=== PATIENT | male | born 1980 | race Hispanic/Latino ===

== ENCOUNTER 2018-09-19 07:52 | Inpatient (IN) | payer OTHER ==
[~2018-09-19] VITALS: Ht 186.7 cm; Wt 92.6 kg
[2018-09-19] VITALS (18 sets, daily range): BP systolic 111–134; BP diastolic 54–77
--- NOTE | 2018-09-19 09:40 | NUR ---
[place] [facility] [place] IN NO DISTRESS. NO CHEST PAIN OR SOB. DR BROWN SENT MESSAGE THAT PT HAS ARRIVED TO ROOM 219
[2018-09-19] MEDS ORDERED: ACETAMINOPHEN 325 MG TAB PO PRN (10:00)
[2018-09-19] MEDS ORDERED: ONDANSETRON HCL 4 MG/2 ML VIAL IVP PRN (10:00)
--- NOTE | 2018-09-19 10:15 | NUR ---
DR BROWN HERE AT BEDSIDE. DR ELLIOTT PAGEReyna
--- NOTE | 2018-09-19 13:10 | NUR ---
PT TAKEN TO SEWER
[2018-09-19] MEDS ORDERED: IOHEXOL 350 MG/ML 100ML INFUS..BTL IV ONE (13:14)
[2018-09-19] MEDS ORDERED: IOHEXOL-350 50ML VIAL IV ONE (13:14)
[2018-09-19] MEDS ORDERED: HEPARIN SODIUM 1000UNIT/ML 10ML VIAL ONE (13:14)
[2018-09-19] MEDS ORDERED: LIDOCAINE HCL 2% 20ML ONE (13:15)
[2018-09-19] MEDS ORDERED: ETOMIDATE 2 MG/ML 10 ML VIAL IVP ONE (13:49)
[2018-09-19] MEDS ORDERED: ROCURONIUM BROMIDE 10MG/1ML 5ML VL IV ONE (13:49)
[2018-09-19] MEDS ORDERED: CALCIUM CHLORIDE 100 MG/ML 10 ML SYG IVP ONE (13:51)
[2018-09-19] MEDS ORDERED: HEPARIN SODIUM 1000UNIT/ML 10ML VIAL IV ONE (13:51)
--- NOTE | 2018-09-19 14:34 | NUR ---
BACK FROM PHYSICAL THERAPY DIRECTOR. D-STAT DRESSING TO RT GROIN INTACT. NO HEMATOMA OR BLEEDING NOTED. DR JOY WAS CONTACTED BY PHYSICAL THERAPY DIRECTOR STAFF AND DR ELLIOTT. STABLE
[2018-09-19] MEDS: NIFEDIPINE 10 MG CAP PO SCH ×2 (15:06→21:19)
[2018-09-19] MEDS: NITROGLYCERIN 1GM/1 INCH PACKET TD SCH ×2 (15:07→23:11)
--- NOTE | 2018-09-19 17:19 | NUR ---
NO ACUTE DISTRESS NOTED-AWAITING DR JOY ARRIVAL,HE HAS BEEN NOTIFIED
[2018-09-19] MEDS: ATORVASTATIN CALCIUM 40 MG TABLET PO SCH (21:19)
[2018-09-19] MEDS: FAMOTIDINE 20MG TAB 20 MG TAB PO SCH (21:19)
[2018-09-20] MEDS ORDERED: CEFAZOLIN SODIUM 1 GM VIAL IVP PRN (01:30)
[2018-09-20 02:10] LABS: HEMATOCRIT 42.7 % (42-54); MEAN CORPUSCULAR HEMOGLOBIN 31.8 pg (27.0-33.0); MEAN CORPUSCULAR HGB CONC 35.4 g/dL (32.0-36.0); MEAN CORPUSCULAR VOLUME 89.8 fL (79-99); PLATELET COUNT (AUTO) 205 K/uL (130-400); RED BLOOD CELL COUNT(AUTO) 4.75 MIL/uL (4.50-6.20); RED CELL DISTRIBUTION WIDTH 14.4 % (11.0-15.5); WHITE BLOOD COUNT (AUTO) 6.7 K/uL (4.8-10.8)
[2018-09-20 02:22] LABS: INR 0.94 (0.85-1.15); PARTIAL THROMBOPLASTIN TIME 28.7 SEC (26.3-35.5); PROTHROMBIN TIME 9.9 SEC (9.6-11.6)
[2018-09-20 02:35] LABS: POTASSIUM 3.7 mmol/L (3.5-5.1)
[2018-09-20 03:00] VITALS: BP 106/46
[2018-09-20 03:09] LABS: HEMOGLOBIN A1C 5.4 % (4.0-6.0)
--- NOTE | 2018-09-20 05:45 | NUR ---
CONSENT OBTAINED FOR CABG AND PFT 'S AND PRE OP TEACHING COMLETED WITH BOOKLET GIVEN ' GOING FOR OPEN HEART SURGERY". QUESTIONS ANSWERED WITH PATIENT VERBALIZING UNDERSTANDING.
[2018-09-20] MEDS: NITROGLYCERIN 1GM/1 INCH PACKET TD SCH ×3 (06:32→22:32)
[2018-09-20 07:55] VITALS: BP 109/41
[2018-09-20] MEDS: NIFEDIPINE 10 MG CAP PO SCH ×3 (09:00→21:00)
[2018-09-20] MEDS: FAMOTIDINE 20MG TAB 20 MG TAB PO SCH ×2 (09:00→21:23)
[2018-09-20] MEDS ORDERED: ASPIRIN 81MG TAB.CHEW PO SCH (09:00)
[2018-09-20] MEDS ORDERED: CLOPIDOGREL BISULFATE 75 MG TAB PO SCH (09:00)
[2018-09-20] MEDS ORDERED: ENOXAPARIN SODIUM 100 MG/1 ML SQ SCH (09:00)
[2018-09-20 10:50] VITALS: BP 125/55
[2018-09-20 15:56] VITALS: BP 105/49
[2018-09-20] MEDS: ATORVASTATIN CALCIUM 40 MG TABLET PO SCH (21:23)
[2018-09-20 23:26] VITALS: BP 124/61
[2018-09-21] VITALS (33 sets, daily range): BP systolic 108–183; BP diastolic 53–95
--- NOTE | 2018-09-21 05:00 | NUR ---
PT HAS BEEN NPO SINCE MIDNIGHT. PENDING CABG PROCEDURE TODAY WITH DR. JOY. PT AWARE. HIBICLENS SHOWERS COMPLETEDX2. CLIPPED AND PREPPED DAY PRIOR. CONSENT IN CHART.
[2018-09-21] MEDS: NITROGLYCERIN 1GM/1 INCH PACKET TD SCH (05:56)
--- NOTE | 2018-09-21 06:00 | NUR ---
SECURE SOFTWARE ASSESSOR HERE TO ENVIRONMENTAL MONITORING TECHNICIAN PATIENT FOR CABG. PT IS STABLE. NO DISTRESS NOTED. CONSENT IN CHART.
[2018-09-21] MEDS ORDERED: SODIUM CHLORIDE 0.9% 1000ML 1,000 ML IV ONE (06:16)
[2018-09-21] MEDS ORDERED: NITROGLYCERIN 50 MG/D5% WATER 1 BOT ONE (07:03)
[2018-09-21] MEDS ORDERED: BACITRACIN 50,000 UNIT VIAL ONE (07:05)
[2018-09-21] MEDS ORDERED: PAPAVERINE HCL 30 MG/ML 2ML VIAL ONE (07:05)
[2018-09-21] MEDS ORDERED: SODIUM BICARB 50MEQ 50ML VIAL ONE (08:26)
[2018-09-21] MEDS ORDERED: LIDOCAINE PF 2% 5ML ABBOJECT ONE (08:26)
[2018-09-21] MEDS ORDERED: EPINEPHRINE 1 MG/ML AMPULE ONE (08:26)
[2018-09-21] MEDS ORDERED: ESMOLOL HCL 10 MG/ML 10 ML VIAL ONE (08:26)
[2018-09-21] MEDS ORDERED: PROTAMINE SULFATE 10 MG/ML 25ML VIAL IV ONE (08:26)
[2018-09-21] MEDS ORDERED: AMINOCAPROIC ACID 250 MG/ML 20 ML VIAL IV ONE (08:26)
[2018-09-21] MEDS ORDERED: HEPARIN SODIUM 1000UNIT/ML 10ML VIAL ONE (08:26)
[2018-09-21] MEDS ORDERED: NOREPINEPHRINE BITARTRATE 1 MG/1 ML ML IV ONE (08:26)
[2018-09-21] MEDS ORDERED: FENTANYL CITRATE PF 50 MCG/1 ML 20ML VIAL IJ ONE (08:27)
[2018-09-21] MEDS ORDERED: PROPOFOL 10 MG/ML 20ML VIAL IV ONE (08:27)
[2018-09-21] MEDS ORDERED: ROCURONIUM 10MG/1ML SYR 10 MG/ML ML ONE (08:27)
[2018-09-21] MEDS ORDERED: MIDAZOLAM HCL 1 MG/ML 5ML VIAL ONE (08:27)
[2018-09-21] MEDS ORDERED: THROMBIN-JMI 5000 UNIT/VIAL TP ONE (08:50)
[2018-09-21 08:58] LABS: ABG BASE EXCESS 2.4 mmol/L (-2.0-3.0); ABG HCO3 25.6 mmol/L (21.0-28.0); ABG OXYGEN SATURATION 99.2 % (95.0-99.0); ABG PCO2 35 mmHg (35-48)
[2018-09-21 11:11] LABS: ABG HCO3 20.6 mmol/L (21.0-28.0); ABG OXYGEN SATURATION 99.3 % (95.0-99.0); ABG PCO2 33 mmHg (35-48)
[2018-09-21 12:10] LABS: ABG BASE EXCESS 0.1 mmol/L (-2.0-3.0); ABG HCO3 24.3 mmol/L (21.0-28.0); ABG OXYGEN SATURATION 99.1 % (95.0-99.0); ABG PCO2 38 mmHg (35-48)
[2018-09-21 12:46] LABS: ABG BASE EXCESS -1.7 mmol/L (-2.0-3.0); ABG HCO3 22.6 mmol/L (21.0-28.0); ABG PCO2 37 mmHg (35-48)
[2018-09-21] MEDS ORDERED: SODIUM CHLORIDE 0.9% 500ML 500 ML IV SCH (12:52)
[2018-09-21] MEDS ORDERED: ALBUMIN (HUMAN) 5% 250 ML IV PRN (13:00)
[2018-09-21] MEDS ORDERED: SODIUM CHLORIDE 0.9% 250 ML IV PRN (13:00)
[2018-09-21] MEDS ORDERED: ACETAMINOPHEN 325 MG TAB PO PRN (13:00)
[2018-09-21] MEDS ORDERED: NOREPINEPHRINE 4MG/NS 250ML 250 ML IV PRN (13:00)
[2018-09-21] MEDS ORDERED: ONDANSETRON HCL 4 MG/2 ML VIAL IV PRN (13:00)
[2018-09-21] MEDS ORDERED: GLUCAGON 1MG KIT 1 MG ML IM PRN (13:00)
[2018-09-21] MEDS ORDERED: EPINEPHRINE 8 MG in DEXTROSE 5%-WATER 250 ML IV PRN (13:00)
[2018-09-21] MEDS ORDERED: ACETAMINOPHEN 650 MG SUPPOSITORY RC PRN (13:00)
[2018-09-21] MEDS ORDERED: MORPHINE SULFATE 2 MG/ML 1ML SYG IV PRN (13:00)
[2018-09-21] MEDS ORDERED: INSULIN REGULAR, HUMAN 3ML 100 UNIT in SODIUM CHLORIDE 0.9% 99 ML IV SCH ×2 (13:00)
[2018-09-21] MEDS ORDERED: SODIUM CHLORIDE 0.9% 1000ML 1,000 ML IV SCH (13:00)
[2018-09-21] MEDS ORDERED: POTASSIUM PHOS 15 mMOL+NS250ML 250 ML IV PRN (13:00)
[2018-09-21] MEDS ORDERED: DEXTROSE 50%-WATER 50 ML DISP.SYRIN IV PRN (13:00)
[2018-09-21] MEDS ORDERED: SODIUM CHLORIDE 0.9% 10 ML VIAL IVP PRN (13:00)
[2018-09-21] MEDS ORDERED: AMINOCAPROIC ACID 15,000 MG in SODIUM CHLORIDE 0.9% 250 ML IV SCH (13:00)
[2018-09-21] MEDS ORDERED: FENTANYL CITRATE PF 50 MCG/1 ML 2ML VIAL ONE ×2 (13:14)
[2018-09-21] MEDS: FAMOTIDINE 20MG TAB 20 MG TAB PO SCH ×2 (13:21→19:30)
--- NOTE | 2018-09-21 13:28 | NUR ---
PATIENT ARRIVED TO CVR [address] KEY AND OR NURSES. PATIENT CONNECTED TO VENT AT ORDERED SETTINGS. CONNECTED TO MONITORS, ALARMS SET AND AUDIBLE. EPI AND LEVOPHED DRIPS CONTINUED FROM OR. VITALS RECORDED. REIS CATHETER PATENT AND DRAINING. CT X2 PATENT AND DRAINING, 150ML IN ATRIUM ON ARRIVAL, NO AIR LEAK. BED LOCKED AND LOW. ABG, CXR AND LABS PENDING PER ORDERS.
[2018-09-21 13:53] LABS: ABG BASE EXCESS -3.1 mmol/L (-2.0-3.0); ABG HCO3 22.6 mmol/L (21.0-28.0); ABG PCO2 43 mmHg (35-48)
[2018-09-21] MEDS: SODIUM BICARB 50MEQ 50ML VIAL IV PRN ×2 (13:55→16:37)
[2018-09-21 13:56] LABS: HEMATOCRIT 41.5 % (42-54); MEAN CORPUSCULAR HEMOGLOBIN 30.3 pg (27.0-33.0); MEAN CORPUSCULAR HGB CONC 34.2 g/dL (32.0-36.0); MEAN CORPUSCULAR VOLUME 88.6 fL (79-99); PLATELET COUNT (AUTO) 226 K/uL (130-400); RED BLOOD CELL COUNT(AUTO) 4.69 MIL/uL (4.50-6.20); RED CELL DISTRIBUTION WIDTH 14.3 % (11.0-15.5)
[2018-09-21] MEDS: CALCIUM GLUCONATE 1 GM in SODIUM CHLORIDE 0.9% 50 ML IV PRN ×2 (14:01→14:21)
[2018-09-21 14:07] LABS: INR 1.04 (0.85-1.15); MAGNESIUM 1.2 mg/dL (1.80-2.40); PHOSPHORUS 4.1 mg/dL (2.5-4.9); POTASSIUM 4.2 mmol/L (3.5-5.1); PROTHROMBIN TIME 10.9 SEC (9.6-11.6)
--- NOTE | 2018-09-21 14:10 | NUR ---
PATIENT'S FAMILY IN FOR POST OP VISIT. PHONE NUMBERS EXCHANGED. SPOKESPERSON WILL BE PATIENT'S GIRLFRIEND ALFREDO [phone]. FAMILY EDUCATED ON PLAN OF CARE AND VISITATION. ALL QUESTIONS ANSWERED. FAMILY LEFT CVR AT 1423.
[2018-09-21] MEDS: MAGNESIUM 2GM PREMIX 50ML 50 ML IV PRN ×2 (14:56→15:40)
[2018-09-21 15:36] LABS: ABG BASE EXCESS 1.9 mmol/L (-2.0-3.0); ABG HCO3 28.6 mmol/L (21.0-28.0); ABG OXYGEN SATURATION 98.5 % (95.0-99.0); ABG PCO2 53 mmHg (35-48)
[2018-09-21] MEDS: MORPHINE SULFATE 4 MG/1ML SYG IV PRN ×2 (15:42→22:25)
[2018-09-21 16:36] LABS: ABG HCO3 26.5 mmol/L (21.0-28.0); ABG OXYGEN SATURATION 98.3 % (95.0-99.0); ABG PCO2 56 mmHg (35-48)
--- NOTE | 2018-09-21 16:48 | NUR ---
DR KEY PAGED RE:ABG RESULTS AND PATIENT'S CONDITION. DR KEY ORDERED TO EXTUBATE PATIENT TO 40%CAM. RT AND PATIENT NOTIFIED.
--- NOTE | 2018-09-21 17:08 | NUR ---
PATIENT EXTUBATED TO 40%CAM. EDUCATED NOT TO TALK FOR 2 HOURS, NODS IN AGREEMENT. TOLERATED WELL.
--- NOTE | 2018-09-21 17:45 | NUR ---
Paged Dr Burdick for patient's increasing pain. Pending call back.
[2018-09-21] MEDS: CEFAZOLIN SODIUM 1 GM VIAL IV SCH (17:53)
[2018-09-21 18:09] LABS: CREATININE 1.1 mg/dL (0.5-1.5); MAGNESIUM 2.4 mg/dL (1.80-2.40); POTASSIUM 4.1 mmol/L (3.5-5.1)
--- NOTE | 2018-09-21 18:20 | NUR ---
Paged Dr Burdick for patient's increasing pain. Pending call back.
--- NOTE | 2018-09-21 18:33 | NUR ---
Paged Dr Burdick for patient's increasing pain. Pending call back. Message sent to Crissy Rajan to get another number.
[2018-09-21 18:35] LABS: ABG BASE EXCESS 0.7 mmol/L (-2.0-3.0); ABG OXYGEN SATURATION 97.8 % (95.0-99.0); ABG PCO2 86 mmHg (35-48)
--- NOTE | 2018-09-21 18:40 | NUR ---
Spoke to Dr Burdick. Ordered to Call Dr Naidu for reintubation.
--- NOTE | 2018-09-21 18:45 | NUR ---
Dr Naidu called, updated on Dr Burdick's orders, ABG and patient's condition. Ordered Bipap and ABG in 1 hr.
--- NOTE | 2018-09-21 18:48 | NUR ---
RT applied Bipap per orders. Report given to night nurse.
--- NOTE | 2018-09-21 19:00 | NUR ---
PM Shift Assessment Awake, alert, on aerosol mask, anxious, restless, tachypneic, shallow breathing with accessory muscle use. Placing on Bipap now with prescribed settings, arterial blood gas in an hour per MD. Sinus tachycardia in low 100s. Side rails up.
[2018-09-21] MEDS: TRAMADOL HCL 50 MG TABLET PO PRN (19:29)
[2018-09-21] MEDS: ATORVASTATIN CALCIUM 40 MG TABLET PO SCH (19:29)
[2018-09-21] MEDS: FAMOTIDINE/PF 20 MG/2 ML VIAL IV SCH (19:30)
[2018-09-21 19:48] LABS: ABG BASE EXCESS 0.3 mmol/L (-2.0-3.0); ABG OXYGEN SATURATION 97.8 % (95.0-99.0); ABG PCO2 81 mmHg (35-48)
--- NOTE | 2018-09-21 19:50 | NUR ---
MD CALL Dr. Esqueda called, latest arterial blood gases results given and updated on status. New order received for re-intubation now. Respiratory therapists Suresh and Gerry made aware. Intubation kit at bedside. Informed pt plan for re-intubation, nods understanding.
--- NOTE | 2018-09-21 20:15 | NUR ---
RE-INTUBATION Dr. Esqueda in to re-intubate. New ETT 8.0 at 25cm at lips placed. Vent settings as prescribed with sedation given by MD. Plan leave intubated overnight and extubate in am at [address] Eqsueda. Pt tolerated procedure well.
[2018-09-21] MEDS: PROPOFOL 1000 MG/100 ML 100 ML IV PRN ×2 (20:59→21:59)
[2018-09-21 21:32] LABS: ABG BASE EXCESS 5.9 mmol/L (-2.0-3.0); ABG OXYGEN SATURATION 98.9 % (95.0-99.0); ABG PCO2 37 mmHg (35-48)
[2018-09-22] VITALS (24 sets, daily range): BP systolic 127–167; BP diastolic 66–100
--- NOTE | 2018-09-22 00:03 | NUR ---
MD CALL Dr. Burdick called, update given on vital signs, intubation, drips, and arterial blood gases results. New order received and will carry out.
[2018-09-22] MEDS: PROPOFOL 1000 MG/100 ML 100 ML IV PRN ×4 (00:22→06:51)
[2018-09-22] MEDS: IPRATROPIUM/ALBUTEROL SULFATE 3 ML SOLUTION IH SCH ×5 (01:00→23:20)
[2018-09-22] MEDS: CEFAZOLIN SODIUM 1 GM VIAL IV SCH ×2 (02:29→09:36)
[2018-09-22 04:51] LABS: HEMATOCRIT 40.2 % (42-54); MEAN CORPUSCULAR HEMOGLOBIN 31.9 pg (27.0-33.0); MEAN CORPUSCULAR HGB CONC 35.8 g/dL (32.0-36.0); NUCLEATED RED BLOOD CELLS 0.1 % (0.0-0.19); PLATELET COUNT (AUTO) 184 K/uL (130-400); RED BLOOD CELL COUNT(AUTO) 4.51 MIL/uL (4.50-6.20); RED CELL DISTRIBUTION WIDTH 14.9 % (11.0-15.5); WHITE BLOOD COUNT (AUTO) 7.5 K/uL (4.8-10.8)
[2018-09-22] MEDS: CALCIUM GLUCONATE 1 GM in SODIUM CHLORIDE 0.9% 50 ML IV PRN ×5 (04:53→21:55)
[2018-09-22 04:56] LABS: ABG BASE EXCESS 5.4 mmol/L (-2.0-3.0); ABG HCO3 30.5 mmol/L (21.0-28.0); ABG PCO2 46 mmHg (35-48)
[2018-09-22 04:57] LABS: INR 1.01 (0.85-1.15); PARTIAL THROMBOPLASTIN TIME 27.8 SEC (26.3-35.5); PROTHROMBIN TIME 10.6 SEC (9.6-11.6)
[2018-09-22 04:58] LABS: CREATININE 0.8 mg/dL (0.5-1.5); PHOSPHORUS 4.1 mg/dL (2.5-4.9); POTASSIUM 3.6 mmol/L (3.5-5.1)
[2018-09-22] MEDS: POTASSIUM CHLORIDE 20MEQ/100ML 100 ML IV PRN ×4 (05:39→18:42)
[2018-09-22] MEDS: FAMOTIDINE/PF 20 MG/2 ML VIAL IV SCH ×2 (08:01→21:44)
[2018-09-22] MEDS: FAMOTIDINE 20MG TAB 20 MG TAB PO SCH (08:05)
[2018-09-22 08:12] LABS: ABG BASE EXCESS 4.4 mmol/L (-2.0-3.0); ABG HCO3 29.9 mmol/L (21.0-28.0); ABG OXYGEN SATURATION 98.5 % (95.0-99.0); ABG PCO2 48 mmHg (35-48)
[2018-09-22] MEDS: TRAMADOL HCL 50 MG TABLET PO PRN ×3 (08:41→21:51)
[2018-09-22] MEDS: ASPIRIN 325 MG TABLET NG SCH (09:34)
[2018-09-22] MEDS: POTASSIUM CHLORIDE 10% ELIXIR 20 MEQ/15 ML UDCUP NG SCH ×3 (09:35→21:45)
[2018-09-22] MEDS: METOPROLOL TARTRATE 25 MG TAB NG SCH ×2 (09:35→21:48)
[2018-09-22] MEDS: FUROSEMIDE 10 MG/ML 2ML VIAL IV SCH ×2 (09:36→21:49)
[2018-09-22] MEDS: ACETAMINOPHEN 325 MG TAB PO PRN ×2 (09:43→15:45)
[2018-09-22] MEDS: NITROGLYCERIN 50 MG/D5% WATER 250 BOT IV SCH (10:52)
[2018-09-22 11:58] LABS: ABG BASE EXCESS 4.6 mmol/L (-2.0-3.0); ABG HCO3 30.6 mmol/L (21.0-28.0); ABG OXYGEN SATURATION 97.1 % (95.0-99.0); ABG PCO2 50 mmHg (35-48)
[2018-09-22] MEDS: M.V.I. IV [ADULT] 10 ML, FOLIC ACID 1 MG, THIAMINE HCL 100 MG in SODIUM CHLORIDE 0.9% 1... IV SCH (12:03)
[2018-09-22 13:10] LABS: ABG BASE EXCESS 3.9 mmol/L (-2.0-3.0); ABG HCO3 29.9 mmol/L (21.0-28.0); ABG OXYGEN SATURATION 96.1 % (95.0-99.0); ABG PCO2 50 mmHg (35-48)
[2018-09-22] MEDS: LISINOPRIL 5 MG TABLET PO SCH ×2 (15:41→21:48)
[2018-09-22 16:03] LABS: ABG BASE EXCESS 3.3 mmol/L (-2.0-3.0); ABG HCO3 29.3 mmol/L (21.0-28.0); ABG OXYGEN SATURATION 97.3 % (95.0-99.0); ABG PCO2 50 mmHg (35-48)
--- NOTE | 2018-09-22 16:15 | NUR ---
Dr. Brar notified of ABG results. Patient on CPAP with PSV of 5, PEEP 5, and FIO2 40%. NIP -23 and TV 300-400. Dr. Brar with orders continue on CPAP and repeat Aabgs in 2 hours.
[2018-09-22 18:37] LABS: ABG BASE EXCESS 5.4 mmol/L (-2.0-3.0); ABG OXYGEN SATURATION 97.3 % (95.0-99.0); ABG PCO2 44 mmHg (35-48)
--- NOTE | 2018-09-22 19:11 | NUR ---
Abgs done. NIP -23 and TV 500 to 600, respiratory rate of 16. Dr. Brar pending call back.
[2018-09-22] MEDS ORDERED: LISINOPRIL 5 MG TABLET PO SCH (21:00)
[2018-09-22 21:49] LABS: ABG HCO3 27.5 mmol/L (21.0-28.0); ABG OXYGEN SATURATION 97.7 % (95.0-99.0); ABG PCO2 46 mmHg (35-48)
[2018-09-22] MEDS: ATORVASTATIN CALCIUM 40 MG TABLET PO SCH (21:54)
[2018-09-23] VITALS (24 sets, daily range): BP systolic 106–155; BP diastolic 50–84
[2018-09-23] MEDS: NITROGLYCERIN 50 MG/D5% WATER 250 BOT IV SCH (01:14)
[2018-09-23 03:59] LABS: BASOPHILS % (AUTO) 0.2 % (0.0-5.0); HEMATOCRIT 37.2 % (42-54); LYMPHOCYTES % (AUTO) 9.9 % (21.0-51.0); MEAN CORPUSCULAR HEMOGLOBIN 31.1 pg (27.0-33.0); MEAN CORPUSCULAR HGB CONC 34.8 g/dL (32.0-36.0); MEAN CORPUSCULAR VOLUME 89.4 fL (79-99); MONOCYTES % (AUTO) 10.6 % (3.0-13.0); NEUTROPHILS % (AUTO) 79.3 % (40.0-77.0); PLATELET COUNT (AUTO) 200 K/uL (130-400); RED BLOOD CELL COUNT(AUTO) 4.16 MIL/uL (4.50-6.20); RED CELL DISTRIBUTION WIDTH 14.6 % (11.0-15.5); WHITE BLOOD COUNT (AUTO) 9.6 K/uL (4.8-10.8)
[2018-09-23] MEDS: TRAMADOL HCL 50 MG TABLET PO PRN ×4 (04:06→23:22)
[2018-09-23 04:16] LABS: CREATININE 0.7 mg/dL (0.5-1.5); MAGNESIUM 1.7 mg/dL (1.80-2.40); POTASSIUM 3.8 mmol/L (3.5-5.1)
[2018-09-23 05:28] LABS: ABG BASE EXCESS 2.5 mmol/L (-2.0-3.0); ABG HCO3 29.6 mmol/L (21.0-28.0); ABG OXYGEN SATURATION 96.8 % (95.0-99.0); ABG PCO2 56 mmHg (35-48)
[2018-09-23] MEDS: MAGNESIUM 2GM PREMIX 50ML 50 ML IV PRN (05:31)
[2018-09-23] MEDS: ACETAMINOPHEN 325 MG TAB PO PRN (05:37)
[2018-09-23] MEDS: IPRATROPIUM/ALBUTEROL SULFATE 3 ML SOLUTION IH SCH ×4 (05:58→23:22)
[2018-09-23] MEDS: POTASSIUM CHLORIDE 20MEQ/100ML 100 ML IV PRN (06:37)
[2018-09-23] MEDS: INSULIN HUMULIN R 100 UNIT/ML 3ML SQ SCH ×2 (06:41→16:00)
[2018-09-23] MEDS: METOPROLOL TARTRATE 25 MG TAB NG SCH ×2 (08:28→20:53)
[2018-09-23] MEDS: ASPIRIN 325 MG TABLET NG SCH (08:28)
[2018-09-23] MEDS: FAMOTIDINE/PF 20 MG/2 ML VIAL IV SCH ×2 (08:28→20:53)
[2018-09-23] MEDS: LISINOPRIL 5 MG TABLET PO SCH (08:29)
[2018-09-23] MEDS: FUROSEMIDE 10 MG/ML 2ML VIAL IV SCH (08:29)
[2018-09-23] MEDS ORDERED: PHARMACY COMMUNICATION MISC SCH (08:30)
[2018-09-23] MEDS: M.V.I. IV [ADULT] 10 ML, FOLIC ACID 1 MG, THIAMINE HCL 100 MG in SODIUM CHLORIDE 0.9% 1... IV SCH (09:19)
[2018-09-23 09:31] LABS: ABG BASE EXCESS 4.7 mmol/L (-2.0-3.0); ABG HCO3 31.6 mmol/L (21.0-28.0); ABG PCO2 56 mmHg (35-48)
--- NOTE | 2018-09-23 09:56 | NUR ---
ALFIE DEVINE HERE TO SEE PT UPDATED. ORDERS RECEIVED AND CARRIED OUT. Addendum: 09/23/18 at 0957 by DARYL RIDER RN RN HE REVIEWED AM ABG'S FROM 09/23/18 AT 0928 AND ENCOURAGED PT TO TAKE DEEP BREATHS.
--- NOTE | 2018-09-23 10:10 | NUR ---
CHEST TUBES REMOVED PER [facility] [place] [facility]. TOLERATED WELL.
--- NOTE | 2018-09-23 10:31 | NUR ---
PHYSICAL THERAPY HERE TO SEE PT PATIENT STOOD AND MARCHED IN PLACE. TOLERATED WELL.
--- NOTE | 2018-09-23 15:35 | NUR ---
DR LADD HERE TO SEE PT UPDATED. ORDERS RECEIVED AND CARRIED OUT.
--- NOTE | 2018-09-23 16:07 | NUR ---
LEFT WRIST ARTERIAL LINE, RT IJ CORD[place] [facility] [place] TOLERATED WELL. NO BLEEDING/HEMATOMA.
[2018-09-23] MEDS: METOCLOPRAMIDE 10 MG/2 ML VIAL IVP SCH ×2 (17:28→23:22)
[2018-09-23] MEDS: FUROSEMIDE 20 MG TABLET PO SCH (17:28)
[2018-09-23] MEDS: ATORVASTATIN CALCIUM 40 MG TABLET PO SCH (20:53)
[2018-09-23] MEDS: POTASSIUM CHLORIDE 20 MEQ ERTAB PO SCH (20:53)
[2018-09-24] VITALS (15 sets, daily range): BP systolic 102–118; BP diastolic 55–63
[2018-09-24 04:11] LABS: HEMATOCRIT 34.6 % (42-54); MEAN CORPUSCULAR HEMOGLOBIN 31.5 pg (27.0-33.0); MEAN CORPUSCULAR HGB CONC 35.2 g/dL (32.0-36.0); MEAN CORPUSCULAR VOLUME 89.3 fL (79-99); PLATELET COUNT (AUTO) 182 K/uL (130-400); RED BLOOD CELL COUNT(AUTO) 3.87 MIL/uL (4.50-6.20); RED CELL DISTRIBUTION WIDTH 14.1 % (11.0-15.5); WHITE BLOOD COUNT (AUTO) 7.2 K/uL (4.8-10.8)
[2018-09-24 04:18] LABS: CREATININE 0.8 mg/dL (0.5-1.5); MAGNESIUM 1.9 mg/dL (1.80-2.40); POTASSIUM 3.8 mmol/L (3.5-5.1)
[2018-09-24 04:32] LABS: EOSINOPHILS % (MANUAL) 2 % (1-6); LYMPHOCYTES % (MANUAL) 16 % (22-44); MONOCYTES % (MANUAL) 7 % (2-9); SEGMENTED NEUTROPHILS % 75 % (40-70)
[2018-09-24 04:33] LABS: MAN.DIFF COMMENT-IMPRESSION MANUAL DIFFERENTIAL; PLATELET MORPHOLOGY COMMENT ADEQUATE
[2018-09-24] MEDS: METOCLOPRAMIDE 10 MG/2 ML VIAL IVP SCH ×3 (05:22→16:50)
[2018-09-24] MEDS: MAGNESIUM 2GM PREMIX 50ML 50 ML IV PRN ×2 (05:37→23:28)
[2018-09-24] MEDS: IPRATROPIUM/ALBUTEROL SULFATE 3 ML SOLUTION IH SCH (06:14)
[2018-09-24] MEDS: POTASSIUM CHLORIDE 20 MEQ ERTAB PO SCH ×2 (08:11→21:43)
[2018-09-24] MEDS: METOPROLOL TARTRATE 25 MG TAB NG SCH ×2 (08:11→21:43)
[2018-09-24] MEDS: FUROSEMIDE 20 MG TABLET PO SCH ×2 (08:11→16:45)
[2018-09-24] MEDS: ASPIRIN 325 MG TABLET NG SCH (08:11)
[2018-09-24] MEDS: LISINOPRIL 5 MG TABLET PO SCH (08:12)
[2018-09-24] MEDS: FAMOTIDINE 20MG TAB 20 MG TAB PO SCH ×2 (08:39→21:42)
[2018-09-24] MEDS: M.V.I. IV [ADULT] 10 ML, FOLIC ACID 1 MG, THIAMINE HCL 100 MG in SODIUM CHLORIDE 0.9% 1... IV SCH (09:39)
[2018-09-24] MEDS: TRAMADOL HCL 50 MG TABLET PO PRN ×2 (16:45→23:27)
--- NOTE | 2018-09-24 19:30 | NUR ---
ASSESSMENT PT RESTING QUIETLY IN CHAIR WATCHING T.V., FAMILY AT BEDSIDE. PT AAOX4, COOPERATIVE, NSR, ROOM AIR (+) BOWEL SOUNDS. MEDIASTINAL INCISION JOJO. BRP WITH ASSIST X1. SOPHY REVIEWED AND WITH IN REACH. WHITE BOARD UP-DATED. ASSESSMENT COMPLETED, SEE FLOW SHEET.
--- NOTE | 2018-09-24 21:00 | NUR ---
DR JULEE LADD INTO SEE PT, UP-DATED ON PT STATUS, SEE ORDERS
[2018-09-24] MEDS: ATORVASTATIN CALCIUM 40 MG TABLET PO SCH (21:44)
[2018-09-24] MEDS: ENOXAPARIN SODIUM 40 MG/0.4 ML SYRINGE SQ SCH (21:51)
[2018-09-24] MEDS ORDERED: MAGNESIUM 2GM PREMIX 50ML 50 ML IV ONE (22:15)
[2018-09-24] MEDS ORDERED: CALCIUM CHLORIDE 100 MG/ML 10 ML SYG IVP SCH (22:15)
[2018-09-24] MEDS ORDERED: MAGNESIUM SULFATE 1 GM in SODIUM CHLORIDE 0.9% 50 ML IV PRN (22:30)
[2018-09-24] MEDS: CALCIUM GLUCONATE 1 GM in SODIUM CHLORIDE 0.9% 50 ML IV PRN (23:32)
[2018-09-25] VITALS (8 sets, daily range): BP systolic 99–117; BP diastolic 46–75
[2018-09-25 04:07] LABS: CREATININE 0.7 mg/dL (0.5-1.5); POTASSIUM 3.6 mmol/L (3.5-5.1)
[2018-09-25] MEDS: POTASSIUM CHLORIDE 20MEQ/100ML 100 ML IV PRN (04:52)
[2018-09-25] MEDS: TRAMADOL HCL 50 MG TABLET PO PRN ×3 (06:35→19:12)
[2018-09-25] MEDS ORDERED: POTASSIUM CHLORIDE 20 MEQ ERTAB PO PRN (07:45)
[2018-09-25] MEDS: ASPIRIN 325 MG TABLET NG SCH (08:42)
[2018-09-25] MEDS: POTASSIUM CHLORIDE 10% ELIXIR 20 MEQ/15 ML UDCUP PO PRN ×2 (08:42→13:14)
[2018-09-25] MEDS: LISINOPRIL 5 MG TABLET PO SCH (08:43)
[2018-09-25] MEDS: FAMOTIDINE 20MG TAB 20 MG TAB PO SCH (08:43)
[2018-09-25] MEDS: METOPROLOL TARTRATE 25 MG TAB NG SCH (08:43)
[2018-09-25] MEDS: ENOXAPARIN SODIUM 40 MG/0.4 ML SYRINGE SQ SCH (08:44)
[2018-09-25] MEDS: M.V.I. IV [ADULT] 10 ML, FOLIC ACID 1 MG, THIAMINE HCL 100 MG in SODIUM CHLORIDE 0.9% 1... IV SCH (09:00)
[2018-09-25] MEDS ORDERED: LISI-617 PO (18:14)
[2018-09-25] MEDS ORDERED: ATOR40TA69 PO (18:14)
[2018-09-25] MEDS ORDERED: TRAM50TA4 PO (18:14)
[2018-09-25] MEDS ORDERED: AEC81 PO (18:14)
[2018-09-25] MEDS ORDERED: METO25 NG (18:14)
[2018-09-25] MEDS ORDERED: ASPI-1012 NG (18:23)
== END 2018-09-25 19:15 | disposition home or self-care (01) | DRG 233 ==
LOC: 2CH 09:27 → 2DH 09-20 19:52 → 2CV 09-21 07:24 → 2BH 09-23 11:32
PROVIDERS: ADMIT Internal Medicine; ATTEND Internal Medicine
PROC: B2111ZZ Fluoroscopy of Multiple Coronary Arteries using Low Osmolar Contrast (ICD-10-PCS; principal; 2018-09-19)
PROC: B2151ZZ Fluoroscopy of Left Heart using Low Osmolar Contrast (ICD-10-PCS; 2018-09-19)
PROC: 4A023N7 Measurement of Cardiac Sampling and Pressure, Left Heart, Percutaneous Approach (ICD-10-PCS; 2018-09-19)
PROC: 021109W Bypass Coronary Artery, Two Arteries from Aorta with Autologous Venous Tissue, Open Approach (ICD-10-PCS; 2018-09-21)
PROC: 06BQ4ZZ Excision of Left Saphenous Vein, Percutaneous Endoscopic Approach (ICD-10-PCS; 2018-09-21)
PROC: 02100Z8 Bypass Coronary Artery, One Artery from Right Internal Mammary, Open Approach (ICD-10-PCS; 2018-09-21 08:25)
PROC: 02100Z9 Bypass Coronary Artery, One Artery from Left Internal Mammary, Open Approach (ICD-10-PCS; 2018-09-21 08:25)
PROC: 5A1935Z Respiratory Ventilation, Less than 24 Consecutive Hours (ICD-10-PCS; 2018-09-22)
DX: I21.4 Non-ST elevation (NSTEMI) myocardial infarction (principal); J95.821 Acute postprocedural respiratory failure; F14.20 Cocaine dependence, uncomplicated; D62 Acute posthemorrhagic anemia; I25.110 Atherosclerotic heart disease of native coronary artery with unstable angina pectoris; E78.5 Hyperlipidemia, unspecified; F10.10 Alcohol abuse, uncomplicated; F17.210 Nicotine dependence, cigarettes, uncomplicated; F19.10 Other psychoactive substance abuse, uncomplicated; I25.2 Old myocardial infarction; Z79.01 Long term (current) use of anticoagulants; Z79.899 Other long term (current) drug therapy; Z82.49 Family history of ischemic heart disease and other diseases of the circulatory system
CPT/HCPCS: 31500; 36415; 71045; 80048; 80061; 82330; 82435; 82803; 82947; 82948; 83036; 83605; 83735; 84100; 84132; 84295; 84484; 85018; 85025; 85027; 85347; 85610; 85730; 86850; 86900; 86901; 86922; 93458; 93880; 94002; 94003; 94010; 94150; 94640; 94660; 94664; 94667; 94668; 97039; A7048; C1894; G0378; J0171; J0610; J0690; J1644; J1650; J1815; J1940; J2001; J2250; J2270; J2440; J2704; J2720; J2765; J3010; J3411; J3475; J3480; J3490; J7030; J7040; Q9967